=== PATIENT | female | born 1935 | race Caucasian/White ===

== ENCOUNTER 2016-08-10 19:21 | Emergency (ER) | payer OTHER ==
[~2016-08-10 19:21] MED LIST: ASAB PO; CALTRA600D PO; DIOVAN320 MG PO; EYE; FERROUS SULF325 M1 PO; LEXAPRO10 PO; LIDODERM TOP; MOBIC7.5 PO; NAMZARIC 28 MG1 EACH PO; PRAVACHOL40 MG PO; PROTONIX PO; SUCR PO; ZETIA PO
== END 2016-08-11 01:20 | disposition home or self-care (01) ==
LOC: ER 19:21
DX: S09.90XA Unspecified injury of head, initial encounter (principal); M54.2 Cervicalgia; M54.5 Low back pain; I10 Essential (primary) hypertension; F03.90 Unspecified dementia, unspecified severity, without behavioral disturbance, psychotic disturbance, mood disturbance, and anxiety; K21.9 Gastro-esophageal reflux disease without esophagitis; Z88.8 Allergy status to other drugs, medicaments and biological substances; Z79.899 Other long term (current) drug therapy; W19.XXXA Unspecified fall, initial encounter
CPT/HCPCS: 70450; 72125; 72131; 99284; A9270-GY